=== PATIENT | male | born 1995 | race Caucasian/White ===

== ENCOUNTER 2017-06-29 22:04 | Emergency (ER) | payer SELFPAY ==
[~2017-06-29] VITALS: Ht 180.3 cm; Wt 78.0 kg
[2017-06-29 22:05] VITALS: Ht 180.3 cm; Wt 78.0 kg
[2017-06-29] MEDS ORDERED: IBUPROFEN 600 MG TAB PO ONE (23:00)
--- NOTE | 2017-06-29 23:39 | RADRPT ---
PROCEDURE: X-ray left hand CLINICAL INDICATION: Fall with left hand pain TECHNIQUE: 3 views left hand COMPARISON: None FINDINGS: Oblique fracture of the mid-diaphysis of the fourth metacarpal. Remaining osseous structures without evident acute fracture. IMPRESSION: Oblique fracture mid diaphysis of the fourth metacarpal. RPTAT: [facility] Physician Shruti Date Time Electronically viewed and signed by Janessa Booker Physician on 06/29/2017 23:39 RS/
[2017-06-30] MEDS ORDERED: IBUP-1542 PO (00:12)
--- NOTE | 2017-07-02 08:43 | ERD ---
ER Documentation Chief Complaint Chief Complaint c/o left hand pain and swelling x 3 days. HPI This is a 21-year-old male presents to the ER with left hand pain that started on Friday. Patient states that he hurt his hand while he was playing soccer and fell on top of it. he denies any wrist pain. He he has had some bruising to the third and fourth digits. He states that pain is getting worse and he noticed that area is now swelling. He denies any numbness or tingling of his hand. ROS 12 point review of systems was done, all negative except per HPI. Medications Home Meds Active Scripts Ibuprofen* (Motrin*) 600 Mg Tab, 600 MG PO Q6, #30 TAB Prov:RUSTY SMITH Servando 06/30/17 Allergies Allergies: Coded Allergies: No Known Drug Allergies (Verified Allergy, Unknown, 06/29/17) PMhx/Soc Medical and Surgical Hx: pt denies Medical Hx, pt denies Surgical Hx Hx Alcohol Use: No Hx Substance Use: No Hx Tobacco Use: No Smoking Status: Current some day smoker Physical Exam Vitals Vital Signs Date Time Temp Pulse Resp B/P Pulse Ox O2 Delivery O2 Flow Rate FiO2 06/29/17 22:05 99.1 89 18 142/82 98 Physical Exam GENERAL: The patient is well developed and appropriate for usual state of health , in no apparent distress. HEENT: Atraumatic CHEST: Clear to auscultation bilaterally. There are no rales, wheezes or rhonchi. HEART: Regular rate and rhythm. No murmurs, clicks, rubs or gallops. EXTREMITIES: The left hand is without obvious asymmetry or deformity when compared to the right hand. There is an area of echymosis near the 3rd and 4th MCP joints. No surface trauma, open wounds, nail avulsion, tissue avulsion, partial or complete amputation, subungal hematoma, bony deformity. Normal cascade of fingers. Normal flexion and extension of fingers. FDS and FDP intact against resistance. No focal fullness, throbbing pain, swelling of fingertip. Normal pulses and capillary refill. C6, C7, C8 are intact to strength and sensation. NEURO: Alert and oriented SKIN: The skin is warm and dry. Results 24 hrs Current Medications Medications (Trade) Dose Ordered Sig/Verónica Route PRN Reason Start Time Stop Time Status Last Admin Dose Admin Ibuprofen (Motrin) 600 mg ONCE ONCE PO 06/29/17 23:00 06/29/17 23:01 DC 06/29/17 22:54 [id number] [address] [id number] Radiology Main Line: [phone] DIAGNOSTIC IMAGING REPORT Patient: PHUONG PRINGLE : 1995 Age: 21 Sex: M MR #: [id number] DOS: 06/29/17 0000 Ordering MD: RUSTY SMITH PA-C Location: [facility] Room/Bed: PROCEDURE: X-ray left hand CLINICAL INDICATION: Fall with left hand pain TECHNIQUE: 3 views left hand COMPARISON: None FINDINGS: Oblique fracture of the mid-diaphysis of the fourth metacarpal. Remaining osseous structures without evident acute fracture. IMPRESSION: Oblique fracture mid diaphysis of the fourth metacarpal. RPTAT: [facility] Physician Shruti Date Time Electronically viewed and signed by Physician Shruti on 06/29/2017 23:39 RS/ CC: RUSTY SMITH Procedures/MDM Differential Diagnosis: hand sprain, mallet finger, gamekeppers thumb, tendon injury, dislocation, fracture, paronychia, felon, cellulitis, flexor tenosynovitis, closed space infection of the finger or hand, carpel tunnel syndrome, osteomyelitis, compartment syndrome. This is a 21-year-old male presents to the ER after falling onto his left hand. Patient does have a fracture. An ulnar gutter splint. He was neurovascularly intact before and after splint application. He was told to follow-up with [facility]. Patient needs to follow-up with his primary care doctor within 1-2 days or return to ER sooner if symptoms worsen. My medical decision making shared with the patient he understands and agrees with plan. Departure Diagnosis: Primary Impression: Hand fracture Condition: Stable Patient Instructions: Treating Hand Fractures Referrals: [facility] Additional Instructions: Llame al doctor MAANA y yaquelin bud TIERNEY PARA DENTRO DE 1-2 SOSA.Dgale a la secretaria que nosotros le instruimos hacer esta tierney.Avise o llame si roberson condicin se empeora antes de la tierney. Regresa aqui si peor o no mejor. TIENES QUE IR CON UN ORTOPEDISTA LO MAS PRONTO POSIBLE! RUSTY SMITH Jul 02, 2017 08:43
== END 2017-06-30 01:42 | disposition home or self-care (01) ==
LOC: FTE 22:04
DX: S62.325A Displaced fracture of shaft of fourth metacarpal bone, left hand, initial encounter for closed fracture (principal); F17.210 Nicotine dependence, cigarettes, uncomplicated; W18.39XA Other fall on same level, initial encounter; Y92.9 Unspecified place or not applicable